=== PATIENT | female | born 1990 | race Caucasian/White ===

== ENCOUNTER 2017-12-08 12:06 | Observation (INO) ==
--- NOTE | 2017-12-08 12:36 | P.HPOB ---
History of Present Illness Primary Care Physician: No Primary Care Physician History of Present Illness: 27 yo G1 at 25w2d by L/8w US (JESUS 03/21/17) being Admitted for 23 observations to rule out possible preeclampsia versus superimposed preeclampsia. PMH: obesity, HTN? 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 Review of Systems All other systems reviewed negative except as stated in HPI Medications and Allergies Active Medications: Active Medications Acetaminophen (Tylenol) 650 mg PO Q4H PRN PRN Reason: PAIN SCALE 1 TO 5 Ondansetron HCl (Zofran Odt) 4 mg PO Q6H PRN PRN Reason: NAUSEA OR VOMITING Vit/Calcium/Iron/Folic Ac (Stuartnatal Plus 3) 1 tab PO DAILY SETH Sodium Chloride (Ns Flush) 2 ml IV.FLUSH BID SETH Sodium Chloride (Ns Flush) 2 ml IV.FLUSH PRN PRN PRN Reason: FLUSH AFTER USING IV ACCESS Allergies Allergy/AdvReac Type Severity Reaction Status Date / Time Sulfa (Sulfonamide Allergy Severe BROKE OUT Unverified 10/13/16 14:27 Antibiotics) WITH WHAT LOOKED LIKE MEASLES WHEN SHE WAS A CHILD Exam - Constitutional no acute distress - Routine HEENT Exam Head: Present: normocephalic ENT: Present: mucous membranes moist - Routine Neck Exam Present: supple - Routine Respiratory Exam Present: CTA bilaterally - Routine Cardiovascular Exam Present: RRR - Routine Abdominal Exam Present: soft Comments: non tender, gravid - Routine Exam Patient deferred: external exam - Routine Extremities Exam Present: full ROM Comments: no C/C/E, DTRs 1+, no clonus Caprini VTE Risk Assessment Caprini VTE Risk Assessment: No/Low Risk (score <= 1) Caprini Risk Assessment Model: Point Value = 1 Point Value = 2 Point Value = 3 Point Value = 5 Age 41-60 Minor surgery BMI > 25 kg/m2 Swollen legs Varicose veins or History of unexplained or recurrent spontaneous Oral contraceptives or hormone replacement Sepsis (< 1 month) Serious lung disease, including pneumonia (< 1 month) Abnormal pulmonary function Acute myocardial infarction Congestive heart failure (< 1 month) History of inflammatory bowel disease Medical patient at bed rest Age 61-74 Arthroscopic surgery Major open surgery (> 45 min) Laparoscopic surgery (> 45 min) Malignancy Confined to bed (> 72 hours) Immobilizing plaster cast Central venous access Age >= 75 History of VTE Family history of VTE Factor V Leiden Prothrombin [id number] Lupus anticoagulant Anticardiolipin antibodies Elevated serum homocysteine Heparin-induced thrombocytopenia Other congenital or acquired thrombophilia Stroke (< 1 month) Elective arthroplasty Hip, pelvis, or leg fracture Acute spinal cord injury (< 1 month) Prophylaxis Regimen: Total Risk Factor Score Risk Level Prophylaxis Regimen 0-1 Low Early ambulation 2 Moderate Order ONE of the following: *Sequential Compression Device (SCD) *Heparin 5000 units SQ BID 3-4 Higher Order ONE of the following medications: *Heparin 5000 units SQ TID *Enoxaparin/Lovenox 40 mg SQ daily (WT < 150 kg, CrCl > 30 mL/min) *Enoxaparin/Lovenox 30 mg SQ daily (WT < 150 kg, CrCl > 10-29 mL/min) *Enoxaparin/Lovenox 30 mg SQ BID (WT < 150 kg, CrCl > 30 mL/min) AND/OR *Sequential Compression Device (SCD) 5 or more Highest Order ONE of the following medications: *Heparin 5000 units SQ TID (Preferred with Epidurals) *Enoxaparin/Lovenox 40 mg SQ daily (WT < 150 kg, CrCl > 30 mL/min) *Enoxaparin/Lovenox 30 mg SQ daily (WT < 150 kg, CrCl > 10-29 mL/min) *Enoxaparin/Lovenox 30 mg SQ BID (WT < 150 kg, CrCl > 30 mL/min) AND *Sequential Compression Device (SCD) Assessment and Plan - Plan 27 yo G1 at 25w2d by L/8w US (JESUS 03/21/18) 1. IUP: BID EFM and toco - Male fetus, post placenta - normal AU on 11/10 - GBS to be collected by nursing 2. CHTN? r/o superimposed preclampsia: pt states that prior to preg had on and off elevated BPs and rec to consider medications, no 24hr urine protein done for baseline. On review had one elevated BP prior to 20w. To note she was tried on aldomet earlier in preg and had peripheral numbness and d/c the med. - Pt started Procardia 30 XL qd last night, has not been checking her blood pressures at home - did not start ASA until 21w, PLAN: monitor BPs, will treat if necessary, HELLP labs, growth US, 24h urine protein, consider BMZ if believe moving toward delivery. Aware that depending on results, may rec delivery which would require tx to higher level facility. 3. Obesity: 1hr GTT done today, results pending.
[2017-12-08 13:35] LABS: Hematocrit 34.6 % (35.0-46.0); Mean Corpuscular HGB Conc 34.8 % (32.0-36.0); Mean Corpuscular Volume 89.2 fL (80.0-100.0); Mean Platelet Volume 8.6 fL (7.0-11.0); Platelet Count 208 th/mm3 (150-450); Red Blood Count 3.88 mil/mm3 (4.00-5.30); White Blood Count 11.4 th/mm3 (4.0-11.0)
[2017-12-08 13:58] LABS: Albumin 2.4 g/dL (3.4-5.0); Anion Gap 9 meq/L (5-15); Aspartate Aminotransferase 22 U/L (15-37); Blood Urea Nitrogen 6 mg/dL (7-18); Calcium 8.3 mg/dL (8.5-10.1); Carbon Dioxide 25.6 meq/L (21.0-32.0); Chloride 107 meq/L (98-107); Glomerular Filtration Rate Greater Than 89 mL/min (>89); Glucose,Random 99 mg/dL (74-106); Potassium 3.7 meq/L (3.5-5.1); Sodium 142 meq/L (136-145)
[2017-12-08 14:01] LABS: Alanine Aminotransferase 35 U/L (10-53); Alkaline Phosphatase 102 U/L (45-117)
[2017-12-08 14:04] LABS: Bacteria,Urine Moderate /hpf; Bilirubin,Urine Negative (Negative); Clarity,Urine Hazy (Clear); Color,Urine Yellow (Yellw/Straw); Glucose,Urine (UA) Negative (Negative); Leukocyte Esterase,Urine Trace (Negative); Mucus,Urine Few /lpf (Occasional); Nitrite,Urine Negative (Negative); Specific Gravity,Urine 1.008 (1.002-1.035); Squamous Epithelial Cell,Urine 5 /hpf (0-5)
[2017-12-08 14:08] LABS: Amphetamine Screen,Urine Neg (Neg); Barbiturate Screen,Urine Neg (Neg); Cannabinoid Screen,Urine Neg (Neg); Cocaine Screen,Urine Neg (Neg)
[2017-12-08 14:15] LABS: Opiate Screen,Urine Neg (Neg)
[2017-12-08] MEDS: Acetaminophen 325 MG Tablet PO PRN ×2 (19:26→22:55)
[2017-12-09] MEDS ORDERED: Butalbital/APAP/Caff 50/325/40 MG Tablet PO ONE (01:00)
--- NOTE | 2017-12-09 07:47 | P.OBGPN ---
S: Doing well, began have a headache overnight, responded to Fioricet, no visual changes. O: Exam: deferred FHTs: 150s, moderate variability, accelerations present, no decelerations TOCO: No contractions A/P 27 yo G1 at 25w3d by L/8w US (JESUS 03/21/18) 1. IUP: BID EFM and toco - Male fetus, post placenta - normal AU on 11/10 - EFW (12/08/17) = 743g (32%), cephalic. - GBS pending 2. CHTN r/o superimposed preclampsia: pt states that prior to preg had on and off elevated BPs and rec to consider medications, no 24hr urine protein done for baseline. On review had one elevated BP prior to 20w. To note she was tried on aldomet earlier in preg and had peripheral numbness and d/c the med. - I Believe her headache is related to side effect of Procardia, continue to treat headache. - HELLP labs WNL, 24hr urine protein pending at 1pm - Continue procardia 60XL qd, may discharge later today. - did not start ASA until 21w, 3. Obesity: 1hr GTT done today, results pending.
[2017-12-09] MEDS: Butalbital/APAP/Caff 50/325/40 MG Tablet PO PRN ×2 (08:20→15:01)
[2017-12-09] MEDS ORDERED: Prenatal Vit/Ca/Iron/Folic Acid Tablet PO SCH (09:00)
[2017-12-09] MEDS ORDERED: Famotidine 20 MG Tablet PO ONE (13:15)
[2017-12-09 14:20] VITALS: TEMP 98.8
[2017-12-09 14:23] VITALS: RESP 16
[2017-12-09 15:01] VITALS: BP 143/94; PULSE 123
--- NOTE | 2017-12-09 17:31 | P.OBGPN ---
Care update: Patient's blood pressures have been normotensive today, headache has improved and almost resolved, no visual changes or right upper quadrant pain. Reactive NST. Patient's 24-hour urine returned elevated at 401 mg, discussed with patient that this could represent superimposed preeclampsia, I do not have a baseline 24 -hour urine to compare this to, given this finding I recommend her to be managed conservatively assuming that she has superimposed preeclampsia. I discussed options of management one being inpatient admission and observation sometimes indefinitely up until delivery which the goal will be 34 weeks. Or outpatient management with close outpatient follow-up, twice weekly BPP's and weekly HELLP labs, patient strongly desires outpatient management. I had a long and detailed conversation with the patient and her mother about signs and symptoms of severe disease, and the morbidity associated with superimposed preeclampsia, discussed with the patient that she would likely deliver prematurely, but at this time i feel she is stable and did not feel like she is moving toward delivery. She will follow-up on Wednesday in the office with her primary OB Dr. Rice. -Sent patient with prescription of Procardia 60 mg XL daily, Fioricet as needed , recommend her to not use this more than 2-3 times a day, and a work excuse through the weekend until her Wednesday appointment.
== END 2017-12-09 18:40 | disposition home or self-care (01) ==
LOC: H2E
PROVIDERS: ADMIT Obstetrics & Gynecology; ATTEND Obstetrics & Gynecology

== ENCOUNTER 2017-12-10 18:25 | Inpatient (IN) ==
[2017-12-10 20:04] LABS: Hematocrit 37.2 % (35.0-46.0); Hemoglobin 12.4 gm/dL (11.6-15.3); Mean Corpuscular HGB Conc 33.3 % (32.0-36.0); Mean Corpuscular Hemoglobin 30.4 pg (27.0-34.0); Mean Corpuscular Volume 91.6 fL (80.0-100.0); Mean Platelet Volume 8.1 fL (7.0-11.0); Platelet Count 211 th/mm3 (150-450); Red Blood Count 4.06 mil/mm3 (4.00-5.30); Red Cell Distribution Width 13.2 % (11.6-17.2); White Blood Count 11.9 th/mm3 (4.0-11.0)
[2017-12-10 20:14] LABS: Albumin 2.5 g/dL (3.4-5.0); Anion Gap 9 meq/L (5-15); Aspartate Aminotransferase 32 U/L (15-37); Blood Urea Nitrogen 8 mg/dL (7-18); Calcium 8.9 mg/dL (8.5-10.1); Carbon Dioxide 24.2 meq/L (21.0-32.0); Chloride 105 meq/L (98-107); Glomerular Filtration Rate Greater Than 89 mL/min (>89); Glucose,Random 93 mg/dL (74-106); Potassium 4.2 meq/L (3.5-5.1); Sodium 138 meq/L (136-145)
[2017-12-10 20:17] LABS: Alanine Aminotransferase 45 U/L (10-53); Alkaline Phosphatase 101 U/L (45-117); Total Protein 6.4 g/dL (6.4-8.2)
--- NOTE | 2017-12-10 20:23 | ED ---
History of Present Illness Primary Care Physician: Dr. Hogan Chief Complaint: RUQ pain History of Present Illness: SEE exam Weeks Gestation:: 25 Para: 0 : 1 Review of Systems unobtainable due to endotracheal tube Medications and Allergies Allergies Allergy/AdvReac Type Severity Reaction Status Date / Time Sulfa (Sulfonamide Allergy Severe BROKE OUT Verified 12/08/17 15:10 Antibiotics) WITH WHAT LOOKED LIKE MEASLES WHEN SHE WAS A CHILD Home Medications Medication Instructions Recorded Confirmed Type Procardia 30 mg DAILY 12/08/17 12/08/17 History Exam Vital signs: Vital Signs 12/10/17 19:12 12/10/17 19:16 12/10/17 19:31 Pulse Rate 92 H 84 91 H Respiratory Rate 18 Blood Pressure 140/94 H 140/90 151/95 H Narrative: OB - ED Note Patient Name: Domenica Black Date of : [birth year] Patient Status: Emergency Emergency Provider: Eve Kumar Date: 12/10/17 20:02 Initialization Date: 12/10/17 20:02 History of Present Illness Primary Care Physician: Dr. Samira M.D. Chief Complaint: Right upper quadrant pain History of Present Illness: 27-year-old at 25 weeks. Chief complaint right upper quadrant pain. care with Dr. Rice. She was recently discharged yesterday for rule out superimposed preeclampsia. Reports that home BPs were elevated she used a wrist cuff reports a BP of 160s over 113. Subsequently went out and bought a cuff BP is 150s over 90s-inpatient she was started on Procardia 30 mg ER and was advised by her primary metal cabinet finisher to increase to 60 mg. 24 urine protein upon discharge yesterday was 401 however no baseline obtained. Today states that she has a crampy sensation in the right upper quadrant. PMFSH - History History Provided By: Patient - Travel History Recent Travel in the [place] Within the Last 8 Weeks: No Recent Travel Out of the Country Within the Last 8 Weeks: No Exam Vital signs: Vital Signs 12/10/17 18:24 12/10/17 19:24 Temperature 98.6 F Pulse Rate 121 H 123 H Respiratory Rate 20 24 Blood Pressure 108/60 109/55 L Pulse Oximetry 100 97 Intake & Output 1012/10/17 12/11/17 06:59 18:59 06:59 Weight 68.039 kg - Constitutional no acute distress - Routine HEENT Exam Head: Present: normocephalic ENT: Present: mucous membranes moist - Routine Neck Exam Present: supple - Routine Chest/Breast/Axilla Exam Chest wall: Absent: tenderness Breast: Absent: tenderness - Routine Respiratory Exam Present: CTA bilaterally - Routine Cardiovascular Exam Present: RRR - Routine Abdominal Exam Present: soft. Absent: tenderness, organomegaly Comments: Gravid / heart rate category 1 - Routine Exam Comments: Pelvic deferred - Routine Extremities Exam Present: full ROM. Absent: cyanosis, calf tenderness, Jovany's sign - Routine Skin Exam Present: intact - Routine Neurological Exam Present: alert, oriented X3, normal reflexes. Absent: abnormal gait Assessment and Plan - Diagnosis (1) 25 weeks gestation of Code(s): Z3A.25 - 25 weeks gestation of Status: Acute (2) Chronic hypertension Code(s): I10 - Essential (primary) hypertension Status: Acute (3) Proteinuria affecting in third trimester Code(s): O12.13 - Gestational proteinuria, third trimester Status: Acute Discharge Plan - Physicians Team ED Provider: Eve Kumar Primary Care Provider: NOT REQUIRED, - Discharge Instructions Print Language: Gibraltarian Results - Labs CBC & Chem 7: 12/10/17 19:45 12/10/17 19:45 Labs: Laboratory Results - last 24 hr 12/10/17 12/10/17 19:45 19:45 WBC 11.9 H RBC 4.06 Hgb 12.4 Hct 37.2 MCV 91.6 MCH 30.4 MCHC 33.3 RDW 13.2 Plt Count 211 MPV 8.1 Sodium 138 Potassium 4.2 Chloride 105 Carbon Dioxide 24.2 Anion Gap 9 BUN 8 Creatinine 0.66 Estimated GFR Greater than 89 Random Glucose 93 Calcium 8.9 Total Bilirubin 0.2 AST 32 ALT 45 Alkaline Phosphatase 101 Total Protein 6.4 Albumin 2.5 L Discharge Plan - Physicians Team ED Provider: Eve Kumar - Rxs /Orders / Referrals /Forms Prescriptions: No Action [id number] [Fioricet] 50-300-40 mg Capsule 1 cap PO Q4H PRN (Reason: Headache) Qty: 20 RF: 0 nifedipine [Procardia XL] 60 mg Tablet Extended Release 24hr 60 mg PO DAILY Qty: 30 RF: 1 Procardia 30 mg DAILY - Discharge Instructions Print Language: Gibraltarian
[2017-12-10] MEDS ORDERED: Zolpidem Tartrate 5 MG Tablet PO PRN (22:10)
[2017-12-10] MEDS ORDERED: hydrALAZINE HCl Inj 20 MG/ML Vial IV.PUSH PRN (22:10)
[2017-12-10] MEDS ORDERED: Acetaminophen 325 MG Tablet PO PRN (22:10)
[2017-12-10] MEDS ORDERED: Mag Sulf/Water 4 gm/100 ml 100 ML IV.SIG ONE (22:10)
[2017-12-10] MEDS ORDERED: Betamethasone Sod Phos/Acetate Inj 30 MG/5 ML Vial IM SCH (22:15)
--- NOTE | 2017-12-10 22:17 | P.HPOB ---
Patient Name: Bella Vicente Date of : 89 Patient Status: Observation Attending Provider: Radha Willis Date: 12/10/17 20:21 Initialization Date: 12/10/17 20:21 History of Present Illness Primary Care Physician: Dr. Hogan Chief Complaint: RUQ pain History of Present Illness: SEE exam Weeks Gestation:: 25 Para: 0 : 1 Review of Systems unobtainable due to endotracheal tube Medications and Allergies Allergies Allergy/AdvReac Type Severity Reaction Status Date / Time Sulfa (Sulfonamide Allergy Severe BROKE OUT Verified 12/08/17 15:10 Antibiotics) WITH WHAT LOOKED LIKE MEASLES WHEN SHE WAS A CHILD Home Medications Medication Instructions Recorded Confirmed Type Procardia 30 mg DAILY 12/08/17 12/08/17 History Exam Vital signs: Vital Signs 12/10/17 19:12 12/10/17 19:16 12/10/17 19:31 Pulse Rate 92 H 84 91 H Respiratory Rate 18 Blood Pressure 140/94 H 140/90 151/95 H Narrative: OB - ED Note Patient Name: Domenica Black Date of : [birth year] Patient Status: Emergency Emergency Provider: Eve Kumar Date: 12/10/17 20:02 Initialization Date: 12/10/17 20:02 History of Present Illness Primary Care Physician: Dr. Samira M.D. Chief Complaint: Right upper quadrant pain History of Present Illness: 27-year-old at 25 weeks. Chief complaint right upper quadrant pain. care with Dr. Rice. She was recently discharged yesterday for rule out superimposed preeclampsia. Reports that home BPs were elevated she used a wrist cuff reports a BP of 160s over 113. Subsequently went out and bought a cuff BP is 150s over 90s-inpatient she was started on Procardia 30 mg ER and was advised by her primary green jobs trainer to increase to 60 mg. 24 urine protein upon discharge yesterday was 401 however no baseline obtained. Today states that she has a crampy sensation in the right upper quadrant. PMFSH - History History Provided By: Patient - Travel History Recent Travel in the [facility] Within the Last 8 Weeks: No Recent Travel Out of the Country Within the Last 8 Weeks: No Exam Vital signs: Vital Signs 12/10/17 18:24 12/10/17 19:24 Temperature 98.6 F Pulse Rate 121 H 123 H Respiratory Rate 20 24 Blood Pressure 108/60 109/55 L Pulse Oximetry 100 97 Intake & Output 12/10/17 12/10/17 12/11/17 06:59 18:59 06:59 Weight 68.039 kg - Constitutional no acute distress - Routine HEENT Exam Head: Present: normocephalic ENT: Present: mucous membranes moist - Routine Neck Exam Present: supple - Routine Chest/Breast/Axilla Exam Chest wall: Absent: tenderness Breast: Absent: tenderness - Routine Respiratory Exam Present: CTA bilaterally - Routine Cardiovascular Exam Present: RRR - Routine Abdominal Exam Present: soft. Absent: tenderness, organomegaly Comments: Gravid / heart rate category 1 - Routine Exam Comments: Pelvic deferred - Routine Extremities Exam Present: full ROM. Absent: cyanosis, calf tenderness, Jovany's sign - Routine Skin Exam Present: intact - Routine Neurological Exam Present: alert, oriented X3, normal reflexes. Absent: abnormal gait Assessment and Plan - Diagnosis (1) 25 weeks gestation of Code(s): Z3A.25 - 25 weeks gestation of Status: Acute (2) Chronic hypertension Code(s): I10 - Essential (primary) hypertension Status: Acute (3) Proteinuria affecting in third trimester Code(s): O12.13 - Gestational proteinuria, third trimester Status: Acute At this time serial blood pressures in triage systolics 150 diastolic as high as 109. In spite of an additional dose of Procardia. Called Dr. Willis who is production hand-plan of care admit magnesium sulfate/Celestone/plan Limited OB ultrasound EFW CHERRIE and position in the a.m.. Patient made aware plan of care
[2017-12-11] MEDS: Mag Sulf/Water 40 gm/1000 ml 40 GM/1,000 ML BAG IV.CONT SCH ×2 (01:20→19:57)
--- NOTE | 2017-12-11 10:06 | P.OBANTE ---
Subjective Interval History: pt has no HO/BV/CP admitted last night due to elev BP and epigastric pain on MgS04, getting celestone, collecting 24 hr urine labs normal Objective Vital Signs and I&O: Vital Signs 12/10/17 19:12 12/10/17 19:16 12/10/17 19:31 Temperature Pulse Rate 92 H 84 91 H Respiratory Rate 18 Blood Pressure 140/94 H 140/90 151/95 H 12/10/17 19:46 12/10/17 20:16 12/10/17 20:31 Temperature Pulse Rate 77 73 81 Respiratory Rate Blood Pressure 154/107 H 154/96 H 156/100 H 12/10/17 20:46 12/10/17 21:16 12/10/17 22:01 Temperature Pulse Rate 76 81 80 Respiratory Rate Blood Pressure 150/94 H 155/109 H 150/88 H 12/10/17 23:01 12/10/17 23:16 12/10/17 23:46 Temperature Pulse Rate 75 80 115 H Respiratory Rate Blood Pressure 171/99 H 160/96 H 12/11/17 01:12 12/11/17 01:26 12/11/17 01:30 Temperature Pulse Rate 79 92 H Respiratory Rate 18 Blood Pressure 158/103 H 152/92 H 12/11/17 01:42 12/11/17 02:06 12/11/17 02:08 Temperature Pulse Rate 89 84 Respiratory Rate 18 18 Blood Pressure 149/94 H 141/89 H 12/11/17 02:51 12/11/17 02:52 12/11/17 04:35 Temperature 98.5 F Pulse Rate 85 74 Respiratory Rate 18 Blood Pressure 148/94 H 12/11/17 04:43 12/11/17 05:00 12/11/17 05:05 Temperature Pulse Rate 80 82 83 Respiratory Rate 20 Blood Pressure 146/90 H 120/74 12/11/17 05:18 12/11/17 05:20 12/11/17 05:25 Temperature Pulse Rate 84 78 85 Respiratory Rate 18 Blood Pressure 12/11/17 05:55 12/11/17 06:05 12/11/17 06:45 Temperature Pulse Rate 86 78 87 Respiratory Rate Blood Pressure 128/76 12/11/17 06:49 12/11/17 06:55 12/11/17 07:12 Temperature Pulse Rate 78 83 Respiratory Rate 18 Blood Pressure 126/93 H 12/11/17 08:11 12/11/17 08:42 12/11/17 08:55 Temperature Pulse Rate 80 80 91 H Respiratory Rate 18 Blood Pressure 135/97 H 12/11/17 09:00 Temperature 98.4 F Pulse Rate 85 Respiratory Rate Blood Pressure 129/90 Intake & Output 12/10/17 12/11/17 12/11/17 18:59 06:59 18:59 Weight 235 kg Lab and Micro Results: Laboratory Results - last 24 hr 12/10/17 12/10/17 19:45 19:45 WBC 11.9 H RBC 4.06 Hgb 12.4 Hct 37.2 MCV 91.6 MCH 30.4 MCHC 33.3 RDW 13.2 Plt Count 211 MPV 8.1 Sodium 138 Potassium 4.2 Chloride 105 Carbon Dioxide 24.2 Anion Gap 9 BUN 8 Creatinine 0.66 Estimated GFR Greater than 89 Random Glucose 93 Calcium 8.9 Total Bilirubin 0.2 AST 32 ALT 45 Alkaline Phosphatase 101 Total Protein 6.4 Albumin 2.5 L Physical Exam: GENERAL: Well-nourished, well-developed patient. CARDIOVASCULAR: Regular rate and rhythm without murmurs, gallops, or rubs. RESPIRATORY: Breath sounds equal bilaterally. No accessory muscle use. ABDOMEN/GI: Abdomen soft, non-tender. Fundus: [-] GENITOURINARY: External Genitalia: intact and normal in appearance Cervix: [-] deferred Dilatation: [-] Effacement: [-] Station: [-] Presentation: [-] Membranes: [-] Uterine Contractions: [-] FHT's: Category: [-] 1 AGA Baseline: [-] Reactive: [-] Variability: [-] Decels: [-] EXTREMITIES: No cyanosis or edema, non-tender, without signs of DVT. Assessment and Plan - Diagnosis (1) Chronic hypertension affecting Code(s): O10.919 - Unspecified pre-existing hypertension complicating , unspecified trimester Status: Acute (2) 25 weeks gestation of Code(s): Z3A.25 - 25 weeks gestation of Status: Acute - Plan IUP at 25+wks getting mag sulfate, celestone, 24 hr urine long discussion with pt and family about ways in which to prolong including bedrest, pt adamant about working llight duty when discharged afraid to lose her job and insurance, has home purchase pending, has to take her stepchildren to school and mother also in room justifying all of HER responsibilities... attempts made to keep her focused on her own health and the health of her unborn baby Discharge Planning: not a candidate for discharge - Attending Attestation pt seen by me
[2017-12-11] MEDS: Labetalol 200 MG Tablet PO SCH (21:08)
[2017-12-12] MEDS ORDERED: Betamethasone Sod Phos/Acetate Inj 30 MG/5 ML Vial IM SCH (02:45)
[2017-12-12 07:29] VITALS: RESP 18; TEMP 98.1
[2017-12-12] MEDS ORDERED: FLUTICASONE NASAL PRN (09:00)
[2017-12-12] MEDS ORDERED: PRENATAL GUMMIES PO SCH (09:00)
[2017-12-12] MEDS: Labetalol 200 MG Tablet PO SCH (09:05)
--- NOTE | 2017-12-12 10:14 | P.OBANTE ---
Subjective Interval History: no HO, no BV, no CP, BP better since MgS04 and celestone, 24 hr urine 430 mg, labs stable on labetalol 200 mg po BID, seen by neonatology, wants to go home , has appt in am with Dr Rice Objective Vital Signs and I&O: Vital Signs 12/11/17 10:25 12/11/17 10:30 12/11/17 11:20 Temperature Pulse Rate 91 H 97 H 95 H Respiratory Rate 18 Blood Pressure 12/11/17 11:55 12/11/17 12:00 12/11/17 12:55 Temperature 98.5 F Pulse Rate 94 H 97 H Respiratory Rate Blood Pressure 130/81 12/11/17 13:00 12/11/17 13:28 12/11/17 14:07 Temperature Pulse Rate 96 H 91 H 98 H Respiratory Rate 18 16 18 Blood Pressure 138/76 126/84 139/69 12/11/17 14:55 12/11/17 15:00 12/11/17 15:55 Temperature Pulse Rate 98 H 82 101 H Respiratory Rate Blood Pressure 126/76 12/11/17 16:00 12/11/17 16:10 12/11/17 17:20 Temperature 98.4 F Pulse Rate 76 88 Respiratory Rate 16 Blood Pressure 115/54 L 12/11/17 17:25 12/11/17 17:35 12/11/17 17:40 Temperature Pulse Rate 88 88 89 Respiratory Rate 16 Blood Pressure 12/11/17 18:55 12/11/17 19:10 12/11/17 19:19 Temperature Pulse Rate 90 88 96 H Respiratory Rate 16 Blood Pressure 135/74 12/11/17 19:20 12/11/17 19:55 12/11/17 20:10 Temperature 98.6 F Pulse Rate 94 H 93 H 85 Respiratory Rate Blood Pressure 12/11/17 20:30 12/11/17 20:33 12/11/17 20:40 Temperature Pulse Rate 84 83 Respiratory Rate 16 Blood Pressure 148/94 H 12/11/17 21:01 12/11/17 22:00 12/12/17 00:01 Temperature 98.6 F Pulse Rate 98 H 84 Respiratory Rate 16 16 Blood Pressure 144/86 H 129/83 12/12/17 01:07 12/12/17 03:00 12/12/17 03:04 Temperature 98.0 F Pulse Rate 77 75 Respiratory Rate 16 16 Blood Pressure 120/71 121/68 12/12/17 07:27 12/12/17 07:28 Temperature 98.1 F Pulse Rate 78 Respiratory Rate 18 Blood Pressure 116/71 Intake & Output 12/11/17 12/12/17 12/12/17 18:59 06:59 18:59 Intake Total 1000 / 1000 1999 / 1999 Balance 1000 / 1000 1999 Intake: IV 1000 / 1000 1999 / 1999 LR 1000 mL Inj 1,000 ML @ 75 1000 / 1000 1000 / 1000 mls/hr IV.CONT .[id number] SETH Rx# :[id number] Magnesium Sulfate/Water 40 gm/ 1000 / 1000 1000 ml Premix 40 gm In 1,000 ml @ 2 GM/HR 50 mls/hr IV.CONT Q24H SETH Rx#:[id number] Lab and Micro Results: Laboratory Results - last 24 hr 12/10/17 23:49 Ur 24 Hour Volume 2200 Ur Total Protein 24 Hr 436 H Physical Exam: GENERAL: Well-nourished, well-developed patient. CARDIOVASCULAR: Regular rate and rhythm without murmurs, gallops, or rubs. RESPIRATORY: Breath sounds equal bilaterally. No accessory muscle use. ABDOMEN/GI: Abdomen soft, non-tender. Fundus: [-] GENITOURINARY: External Genitalia: intact and normal in appearance Cervix: [-] deferred Dilatation: [-] Effacement: [-] Station: [-] Presentation: [-] Membranes: [-] Uterine Contractions: [-] FHT's: Category: [-] 1 AGA Baseline: [-] Reactive: [-] Variability: [-] Decels: [-] EXTREMITIES: No cyanosis or edema, non-tender, without signs of DVT. Assessment and Plan - Diagnosis (1) Chronic hypertension affecting Code(s): O10.919 - Unspecified pre-existing hypertension complicating , unspecified trimester Status: Acute (2) 25 weeks gestation of Code(s): Z3A.25 - 25 weeks gestation of Status: Acute - Plan IUP at 25+wks s/p mag sulfate, celestone, 24 hr urine long discussion with pt and family about ways in which to prolong including bedrest, pt adamant about working light duty when discharged afraid to lose her job and insurance, has home purchase pending, has to take her stepchildren to school neonatology spoke w/ pt about risks, consequences of prematurity attempts made to keep her focused on her own health and the health of her unborn baby d/c home on labetalol 200 mg po BID, appt with Dr Rice in am Discharge Planning: today - Attending Attestation pt seen by me
[2017-12-12 10:30] VITALS: BP 151/100; PULSE 109
== END 2017-12-12 11:50 | disposition home or self-care (01) ==
LOC: H2E 18:25 → HOBED 18:25 → H2E 12-11 00:05
PROVIDERS: ADMIT Obstetrics & Gynecology; ATTEND Obstetrics & Gynecology

== ENCOUNTER 2017-12-20 16:55 | Inpatient (IN) ==
[2017-12-20] MEDS ORDERED: Labetalol HCl Inj 100 MG/20 ML Vial ONE ×2 (18:46→19:34)
[2017-12-20 18:54] LABS: Baso # (Auto) 0.1 th/mm3 (0.0-0.2); Baso % (Auto) 0.6 % (0.0-2.0); Eos # (Auto) 0.1 th/mm3 (0.0-0.4); Eos % (Auto) 0.7 % (0.0-4.0); Hematocrit 36.6 % (35.0-46.0); Hemoglobin 12.6 gm/dL (11.6-15.3); Lymph # (Auto) 2.8 th/mm3 (1.0-4.8); Lymph % (Auto) 20.7 % (9.0-44.0); Mean Corpuscular HGB Conc 34.5 % (32.0-36.0); Mean Corpuscular Hemoglobin 31.5 pg (27.0-34.0); Mean Corpuscular Volume 91.2 fL (80.0-100.0); Mean Platelet Volume 8.8 fL (7.0-11.0); Mono # (Auto) 0.7 th/mm3 (0.0-0.9); Mono % (Auto) 5.4 % (0.0-8.0); Neut # (Auto) 9.8 th/mm3 (1.8-7.7); Neut % (Auto) 72.6 % (16.0-70.0); Platelet Count 242 th/mm3 (150-450); Red Blood Count 4.01 mil/mm3 (4.00-5.30); Red Cell Distribution Width 12.8 % (11.6-17.2); White Blood Count 13.5 th/mm3 (4.0-11.0)
[2017-12-20 19:06] LABS: Protein/Creatinine Ratio,Urine 4.24 (0.00-0.14)
[2017-12-20 19:17] LABS: Albumin 2.6 g/dL (3.4-5.0); Uric Acid 6.5 mg/dl (2.6-6.0)
--- NOTE | 2017-12-20 19:48 | P.HPOB ---
History of Present Illness Service: Antepartum Primary Care Physician: No Primary Care Physician Chief Complaint: elevated blood pressure and nephrotic levels of protein in urine History of Present Illness: 27 yo wf with LMP 06/04/17 and EDC 03/21/18 at 27 0/7 weeks gestation to unit after office evaluation revealed pre eclampsia with severe features. She has had mild blood pressure elevations prior to conception. She did not tolerate aldomet. She most recently has been on labatelol 200 mg TID. She has been in our antepartum unit 8 days ago and received betamethasone and magnesium for neuroprotection. Today her BP 160/108. Ultrasound shows umbilical artery doppers just below 5. 24 hour urine indicates 3.5 gm protein. LFTs and platelets normal. Denies headache, nausea, vomiting, blurred vision or RUQT. Notes GFM. Denies edema. Has lost 10 pounds since initial visit with healthier eating and less salt. 4+ protein on dip today. EFW is 2 pounds. is vertex male. Posterior placenta. Works for [employer] Has been off this last week. Understands that she needs hospitalization and may need transfer if stable for transfer and preferred by our NICU team. Weeks Gestation:: 27 Para: 0 : 1 - Inpatient Certification I certify that the inpatient services were ordered in accordance with Medicare regulations governing the order. This includes certification that hospital inpatient services are reasonable and necessary and in the case of services not specified as inpatient-only under 42 CFR 419.22(n), that they are appropriately provided as inpatient services in accordance to with the 2-midnight benchmark under 43 CFR 412.3(e) Estimated Total Length of Stay (Days): 2 Plans for Post Hospital Care: Other acute care hospital Review of Systems All other systems reviewed negative except as stated in HPI PMFSH - Medical History Medical History: Medical History (Last Updated 12/20/17 @ 19:42 by Andie Rice MD) Gallbladder disease - Social History I have reviewed the patient's Social History: Yes - Tobacco History Second Hand Smoke Exposure: No Tobacco Use In Past 30 Days: No Smoking Status: Never smoker - Travel History Recent Travel in the [place] Within the Last 8 Weeks: No Recent Travel Out of the Country Within the Last 8 Weeks: No - Immunization History Hx Influenza Vaccine This Season: Yes Medications and Allergies Active Medications: Active Medications Aspirin (Aspirin Chew) 81 mg PO DAILY SEHT Calcium Gluconate (Calcium Gluconate Inj) 1 gm IV.PUSH PRN PRN PRN Reason: Magnesium toxicity Calcium Gluconate (Calcium Gluconate Inj) 1 gm IV.PUSH PRN PRN PRN Reason: Magnesium toxicity Lactated Ringer's (Lr 1000 Ml Inj) 1,000 mls @ 50 mls/hr IV.SIG .Q20H SETH Last Admin: 12/20/17 18:30 Dose: 50 mls/hr Lactated Ringer's (Lr 1000 Ml Inj) 1,000 mls @ 75 mls/hr IV.CONT .[id number] SETH Lactated Ringer's (Lr 1000 Ml Inj) 1,000 mls @ 75 mls/hr IV.CONT .[id number] SETH Labetalol HCl (Trandate) 200 mg PO Q8HR SETH Sodium Chloride (Ns Flush) 2 ml IV.FLUSH BID SETH Sodium Chloride (Ns Flush) 2 ml IV.FLUSH PRN PRN PRN Reason: FLUSH AFTER USING IV ACCESS Sodium Chloride (Ns Flush) 2 ml IV.FLUSH BID SETH Sodium Chloride (Ns Flush) 2 ml IV.FLUSH PRN PRN PRN Reason: FLUSH AFTER USING IV ACCESS Allergies Allergy/AdvReac Type Severity Reaction Status Date / Time Sulfa (Sulfonamide Allergy Severe BROKE OUT Verified 12/08/17 15:10 Antibiotics) WITH WHAT LOOKED LIKE MEASLES WHEN SHE WAS A CHILD Home Medications Medication Instructions Recorded Confirmed Type nifedipine [Procardia XL] 30 mg PO DAILY 12/08/17 12/11/17 History fluticasone [Flonase Allergy 1 spray INTRANASAL DAILY 12/11/17 12/11/17 History Relief] levocetirizine [Xyzal] 5 mg PO DAILY PRN 12/11/17 12/11/17 History [id number] acid 1 tab PO DAILY 12/11/17 12/11/17 History [PreNata] Exam Vital signs: Vital Signs 12/20/17 18:40 12/20/17 18:55 12/20/17 19:01 Pulse Rate 63 63 67 Respiratory Rate Blood Pressure 178/111 H 181/107 H 183/91 H 12/20/17 19:05 12/20/17 19:11 12/20/17 19:15 Pulse Rate 66 64 68 Respiratory Rate Blood Pressure 183/90 H 12/20/17 19:21 12/20/17 19:31 Pulse Rate 72 66 Respiratory Rate 18 Blood Pressure 182/99 H 180/90 H Intake & Output 12/20/17 12/20/17 12/21/17 06:59 18:59 06:59 Weight 107.501 kg Other: Weight On Admission 107.501 kg Narrative: Does not appear edematous, uncomfortable or in distress - Constitutional no acute distress - Routine HEENT Exam Head: Present: normocephalic Eye: Present: PERRL ENT: Present: mucous membranes moist - Routine Neck Exam Present: supple - Routine Respiratory Exam Present: CTA bilaterally - Routine Cardiovascular Exam Present: RRR - Routine Abdominal Exam Present: soft - Routine Extremities Exam Present: pulses intact - Routine Skin Exam Present: intact - Routine Neurological Exam Present: alert, oriented X3 - Additional findings Additional findings: fundal height 28 cm no CVAT normoreflexic no edema Results - Labs CBC & Chem 7: 12/20/17 18:35 Labs: Laboratory Results - last 24 hr 12/20/17 12/20/17 12/20/17 18:35 18:35 18:35 WBC 13.5 H RBC 4.01 Hgb 12.6 Hct 36.6 MCV 91.2 MCH 31.5 MCHC 34.5 RDW 12.8 Plt Count 242 MPV 8.8 Neut % (Auto) 72.6 H Lymph % (Auto) 20.7 [place] % (Auto) 5.4 Eos % (Auto) 0.7 Baso % (Auto) 0.6 Neut # (Auto) 9.8 H Lymph # (Auto) 2.8 [place] # (Auto) 0.7 Eos # (Auto) 0.1 Baso # (Auto) 0.1 WBC Differential . Differential Comment Auto diff final Uric Acid 6.5 H Total Bilirubin 0.2 Direct Bilirubin 0.1 Indirect Bilirubin 0.1 AST 21 ALT 30 Alkaline Phosphatase 107 Total Protein 7.0 Albumin 2.6 L Ur Random Creatinine 50 U Random Total Protein 211.9 H Protein/Creatinin Ratio 4.24 H - Imaging had ultrasound in our office. vertex male with normal CHERRIE and abnormal UA dopplers with S/D near 5 (4.9) posterior placenta EFW 2 pounds zero ounces. breathing seen. tone good. motion good. Caprini VTE Risk Assessment Caprini VTE Risk Assessment: No/Low Risk (score <= 1) Caprini Risk Assessment Model: Point Value = 1 Point Value = 2 Point Value = 3 Point Value = 5 Age 41-60 Minor surgery BMI > 25 kg/m2 Swollen legs Varicose veins or History of unexplained or recurrent spontaneous Oral contraceptives or hormone replacement Sepsis (< 1 month) Serious lung disease, including pneumonia (< 1 month) Abnormal pulmonary function Acute myocardial infarction Congestive heart failure (< 1 month) History of inflammatory bowel disease Medical patient at bed rest Age 61-74 Arthroscopic surgery Major open surgery (> 45 min) Laparoscopic surgery (> 45 min) Malignancy Confined to bed (> 72 hours) Immobilizing plaster cast Central venous access Age >= 75 History of VTE Family history of VTE Factor V Leiden Prothrombin [id number] Lupus anticoagulant Anticardiolipin antibodies Elevated serum homocysteine Heparin-induced thrombocytopenia Other congenital or acquired thrombophilia Stroke (< 1 month) Elective arthroplasty Hip, pelvis, or leg fracture Acute spinal cord injury (< 1 month) Prophylaxis Regimen: Total Risk Factor Score Risk Level Prophylaxis Regimen 0-1 Low Early ambulation 2 Moderate Order ONE of the following: *Sequential Compression Device (SCD) *Heparin 5000 units SQ BID 3-4 Higher Order ONE of the following medications: *Heparin 5000 units SQ TID *Enoxaparin/Lovenox 40 mg SQ daily (WT < 150 kg, CrCl > 30 mL/min) *Enoxaparin/Lovenox 30 mg SQ daily (WT < 150 kg, CrCl > 10-29 mL/min) *Enoxaparin/Lovenox 30 mg SQ BID (WT < 150 kg, CrCl > 30 mL/min) AND/OR *Sequential Compression Device (SCD) 5 or more Highest Order ONE of the following medications: *Heparin 5000 units SQ TID (Preferred with Epidurals) *Enoxaparin/Lovenox 40 mg SQ daily (WT < 150 kg, CrCl > 30 mL/min) *Enoxaparin/Lovenox 30 mg SQ daily (WT < 150 kg, CrCl > 10-29 mL/min) *Enoxaparin/Lovenox 30 mg SQ BID (WT < 150 kg, CrCl > 30 mL/min) AND *Sequential Compression Device (SCD) Assessment and Plan - Diagnosis (1) with 27 completed weeks gestation Code(s): Z3A.27 - 27 weeks gestation of Status: Acute (2) Pre-eclampsia, severe, antepartum Code(s): O14.10 - Severe pre-eclampsia, unspecified trimester Status: Acute (3) Nephrotic range proteinuria Code(s): R80.9 - Proteinuria, unspecified Status: Acute - Plan she has been counseled by our NICU CHEF ASSISTANT and it is recommended she be transferred to [facility] currently BPs not stable- beginning Magnesium for seizure prophylaxis and labatelol protocol underway (has received 20 and 40 so far) platelets and LFTs normal so far. will plan for transfer in the morning if BPs stablizied.
[2017-12-20] MEDS ORDERED: Mag Sulf/Water 4 gm/100 ml 100 ML IV.SIG ONE ×2 (19:49→21:32)
[2017-12-20] MEDS ORDERED: Mag Sulf/Water 40 gm/1000 ml 40 GM/1,000 ML BAG IV.CONT ONE (20:20)
[2017-12-20] MEDS ORDERED: Labetalol HCl Inj 100 MG/20 ML Vial IV.PUSH PRN ×3 (21:32→21:55)
[2017-12-20] MEDS: Labetalol 200 MG Tablet PO SCH ×2 (21:40→21:54)
[2017-12-20] MEDS ORDERED: Mag Sulf/Water 40 gm/1000 ml 40 GM/1,000 ML BAG IV.CONT SCH (22:00)
[2017-12-21] MEDS: Acetaminophen 325 MG Tablet PO PRN ×2 (03:30→07:29)
[2017-12-21] MEDS: Labetalol 200 MG Tablet PO SCH (06:04)
[2017-12-21 07:33] VITALS: TEMP 97.6
[2017-12-21 08:22] VITALS: RESP 18
[2017-12-21] MEDS ORDERED: LEVOCETIRIZINE 5 MG PO PRN (08:36)
[2017-12-21 08:40] VITALS: BP 142/85
--- NOTE | 2017-12-21 08:45 | P.OBANTE ---
Subjective Interval History: Quiet night after IV labatelol protrocol reduced blood pressures to 140s/90s Has significant headache from her Magnesium no leaking, bleeding mild nausea no vomiting no RUQT GFM Objective Vital Signs and I&O: Vital Signs 12/20/17 18:40 12/20/17 18:55 12/20/17 19:01 Temperature Pulse Rate 63 63 67 Respiratory Rate Blood Pressure 178/111 H 181/107 H 183/91 H 12/20/17 19:05 12/20/17 19:11 12/20/17 19:15 Temperature Pulse Rate 66 64 68 Respiratory Rate Blood Pressure 183/90 H 12/20/17 19:21 12/20/17 19:31 12/20/17 19:41 Temperature 99.1 F Pulse Rate 72 66 65 Respiratory Rate 18 Blood Pressure 182/99 H 180/90 H 192/94 H 12/20/17 19:45 12/20/17 20:01 12/20/17 20:05 Temperature Pulse Rate 65 81 70 Respiratory Rate Blood Pressure 166/86 H 12/20/17 20:11 12/20/17 20:16 12/20/17 20:25 Temperature Pulse Rate 75 74 77 Respiratory Rate Blood Pressure 155/82 H 143/86 H 12/20/17 20:31 12/20/17 20:46 12/20/17 20:50 Temperature Pulse Rate 72 74 71 Respiratory Rate 20 Blood Pressure 146/80 H 139/80 12/20/17 21:10 12/20/17 21:25 12/20/17 21:30 Temperature Pulse Rate 79 84 78 Respiratory Rate Blood Pressure 153/93 H 12/20/17 21:31 12/20/17 21:35 12/20/17 21:40 Temperature Pulse Rate 76 78 77 Respiratory Rate Blood Pressure 146/80 H 12/20/17 21:45 12/20/17 21:50 12/20/17 21:57 Temperature Pulse Rate 83 89 87 Respiratory Rate 18 Blood Pressure 12/20/17 22:00 12/20/17 22:15 12/20/17 22:20 Temperature Pulse Rate 86 83 87 Respiratory Rate Blood Pressure 139/86 12/20/17 22:25 12/20/17 22:30 12/20/17 22:35 Temperature Pulse Rate 84 84 86 Respiratory Rate Blood Pressure 136/82 12/20/17 22:45 12/20/17 22:50 12/20/17 22:55 Temperature Pulse Rate 84 80 79 Respiratory Rate Blood Pressure 12/20/17 22:57 12/20/17 23:00 12/20/17 23:05 Temperature 98.7 F Pulse Rate 85 84 Respiratory Rate 16 Blood Pressure 138/82 12/20/17 23:15 12/20/17 23:20 12/20/17 23:25 Temperature Pulse Rate 78 78 79 Respiratory Rate Blood Pressure 12/20/17 23:30 12/20/17 23:45 12/20/17 23:56 Temperature Pulse Rate 82 76 82 Respiratory Rate 18 Blood Pressure 12/21/17 00:00 12/21/17 00:05 12/21/17 00:10 Temperature Pulse Rate 84 80 76 Respiratory Rate Blood Pressure 109/63 12/21/17 00:15 12/21/17 00:20 12/21/17 00:25 Temperature Pulse Rate 78 73 72 Respiratory Rate Blood Pressure 12/21/17 00:30 12/21/17 00:45 12/21/17 00:59 Temperature Pulse Rate 72 70 69 Respiratory Rate 16 Blood Pressure 12/21/17 01:00 12/21/17 01:01 12/21/17 01:10 Temperature Pulse Rate 69 84 68 Respiratory Rate Blood Pressure 117/63 12/21/17 01:15 12/21/17 01:20 12/21/17 01:25 Temperature Pulse Rate 68 68 80 Respiratory Rate Blood Pressure 12/21/17 01:35 12/21/17 01:45 12/21/17 01:48 Temperature Pulse Rate 68 66 Respiratory Rate 16 Blood Pressure 12/21/17 01:55 12/21/17 02:05 12/21/17 02:20 Temperature Pulse Rate 65 77 70 Respiratory Rate Blood Pressure 133/85 12/21/17 02:50 12/21/17 02:55 12/21/17 03:00 Temperature Pulse Rate 67 69 70 Respiratory Rate 16 Blood Pressure 126/90 12/21/17 03:05 12/21/17 03:20 12/21/17 03:25 Temperature Pulse Rate 83 69 65 Respiratory Rate Blood Pressure 12/21/17 03:30 12/21/17 03:35 12/21/17 03:55 Temperature Pulse Rate 66 64 63 Respiratory Rate Blood Pressure 12/21/17 04:00 12/21/17 04:01 12/21/17 04:15 Temperature 97.8 F Pulse Rate 65 68 63 Respiratory Rate 18 Blood Pressure 142/94 H 12/21/17 04:20 12/21/17 04:25 12/21/17 04:30 Temperature Pulse Rate 82 72 74 Respiratory Rate Blood Pressure 12/21/17 04:35 12/21/17 04:40 12/21/17 04:50 Temperature Pulse Rate 74 71 71 Respiratory Rate Blood Pressure 12/21/17 04:58 12/21/17 05:00 12/21/17 05:20 Temperature Pulse Rate 73 82 66 Respiratory Rate 16 Blood Pressure 149/92 H 12/21/17 05:25 12/21/17 05:30 12/21/17 05:35 Temperature Pulse Rate 67 66 67 Respiratory Rate Blood Pressure 12/21/17 05:50 12/21/17 05:55 12/21/17 06:00 Temperature Pulse Rate 65 65 68 Respiratory Rate Blood Pressure 136/83 12/21/17 06:05 12/21/17 06:10 12/21/17 06:15 Temperature Pulse Rate 78 82 68 Respiratory Rate Blood Pressure 12/21/17 06:55 12/21/17 07:30 12/21/17 07:55 Temperature 97.6 F Pulse Rate 77 73 72 Respiratory Rate 17 Blood Pressure 143/94 H 12/21/17 08:00 Temperature Pulse Rate Respiratory Rate 18 Blood Pressure Intake & Output 12/20/17 12/21/17 12/21/17 18:59 06:59 18:59 Weight 107.501 kg Other: Weight On Admission 107.501 kg Lab and Micro Results: Laboratory Results - last 24 hr 12/20/17 12/20/17 12/20/17 18:35 18:35 18:35 WBC 13.5 H RBC 4.01 Hgb 12.6 Hct 36.6 MCV 91.2 MCH 31.5 MCHC 34.5 RDW 12.8 Plt Count 242 MPV 8.8 Neut % (Auto) 72.6 H Lymph % (Auto) 20.7 [place] % (Auto) 5.4 Eos % (Auto) 0.7 Baso % (Auto) 0.6 Neut # (Auto) 9.8 H Lymph # (Auto) 2.8 [place] # (Auto) 0.7 Eos # (Auto) 0.1 Baso # (Auto) 0.1 WBC Differential . Differential Comment Auto diff final Uric Acid 6.5 H Total Bilirubin 0.2 Direct Bilirubin 0.1 Indirect Bilirubin 0.1 AST 21 ALT 30 Alkaline Phosphatase 107 Total Protein 7.0 Albumin 2.6 L Ur Random Creatinine 50 U Random Total Protein 211.9 H Protein/Creatinin Ratio 4.24 H Physical Exam: GENERAL: Well-nourished, well-developed patient. CARDIOVASCULAR: Regular rate and rhythm without murmurs, gallops, or rubs. RESPIRATORY: Breath sounds equal bilaterally. No accessory muscle use. ABDOMEN/GI: Abdomen soft, non-tender. fundus consistent with dates cervix long/closed/postierior EXTREMITIES: No cyanosis or edema, non-tender, without signs of DVT. 24 hour urine show 3.5 gm protein in 24 hours--reported on Wednesday. Assessment and Plan - Diagnosis (1) with 27 completed weeks gestation Code(s): Z3A.27 - 27 weeks gestation of Status: Acute (2) Pre-eclampsia, severe, antepartum Code(s): O14.10 - Severe pre-eclampsia, unspecified trimester Status: Acute (3) Nephrotic range proteinuria Code(s): R80.9 - Proteinuria, unspecified Status: Acute - Plan she has been counseled by our NICU HOME HEALTH CLINICIAN and it is recommended she be transferred to [facility] currently BPs not stable- beginning Magnesium for seizure prophylaxis and labatelol protocol underway (has received 20 and 40 so far) platelets and LFTs normal so far. will plan for transfer in the morning if BPs stablizied. 12/21/17 Hospital day 1 stable for transfer discussed with [facility] and accepted will go by ground
[2017-12-21] MEDS ORDERED: Butalbital/APAP/Caff 50/325/40 MG Tablet PO PRN (09:00)
[2017-12-21] MEDS ORDERED: Butalbital/APAP/Caff 50/325/40 MG Tablet PO ONE (09:00)
[2017-12-21] MEDS ORDERED: Prenatal Vit/Ca/Iron/Folic Acid Tablet PO SCH (09:00)
[2017-12-21 09:32] VITALS: PULSE 75
== END 2017-12-21 10:38 | disposition short-term general hospital (02) ==
LOC: H2E 16:55
PROVIDERS: ADMIT Obstetrics & Gynecology; ATTEND Obstetrics & Gynecology
CPT/HCPCS: 80076; 82570; 84155; 84157; 84550; 85025; J2060; J3475; J7120